=== PATIENT | female | born 1980 | race Caucasian/White ===

== ENCOUNTER 2019-12-27 04:23 | Inpatient (IN) | payer BC ==
[2019-12-27] MEDS ORDERED: Sodium Chloride 0.9% 10 ML Syringe FLUSH PRN (05:05)
[2019-12-27] MEDS ORDERED: Butorphanol 1 MG/ML SDV IVPUSH PRN (05:05)
[2019-12-27] MEDS ORDERED: Tranexamic Acid 1,000 MG in Sodium Chloride 0.9% 100 ML IV PRN (05:05)
[2019-12-27] MEDS ORDERED: Sodium Chloride 0.9% 2.5 ML Syringe FLUSH PRN (05:05)
[2019-12-27] MEDS ORDERED: Sodium Chloride 0.9% 10 ML SDV IV PRN (05:05)
[2019-12-27] MEDS ORDERED: Misoprostol 200 MCG Tab PO PRN (05:05)
[2019-12-27] MEDS ORDERED: Methylergonovine 0.2 MG/1 ML Amp IM PRN (05:05)
[2019-12-27] MEDS ORDERED: Nalbuphine 10 MG/1 ML Vial IVPUSH PRN (05:05)
[2019-12-27] MEDS ORDERED: Carboprost Tromethamine 250 MCG/1 ML Amp IM PRN (05:05)
[2019-12-27] MEDS ORDERED: Water For Irrigation,Sterile 1,000 ML Container IRR PRN (05:05)
[2019-12-27] MEDS ORDERED: Lidocaine 1% 50 ML MDV INJECT PRN (05:05)
[2019-12-27] MEDS ORDERED: Lactated Ringers 1,000 ML IV SCH (05:15)
[2019-12-27] MEDS ORDERED: Oxytocin/0.9 % Sodium Chloride 30 UNIT/500 ML BAG IV SCH (05:15)
[2019-12-27] MEDS ORDERED: Ampicillin 2 GM in Sodium Chloride 0.9% 100 ML IV ONE (05:30)
[2019-12-27] MEDS ORDERED: Witch Hazel Medicated Pads 40/Jar TOP PRN (09:19)
[2019-12-27] MEDS ORDERED: Lanolin 100% Cream 7 GM Tube TOP PRN (09:19)
[2019-12-27] MEDS ORDERED: Docusate Sodium 100 MG Cap PO PRN (09:19)
[2019-12-27] MEDS ORDERED: oxyCODONE 5 MG Tab PO PRN (09:19)
[2019-12-27] MEDS ORDERED: Benzocaine/Menthol 20%-0.5% Spray 78 GM Cannister TOP PRN (09:19)
[2019-12-27] MEDS ORDERED: Acetaminophen 500 MG Tab PO PRN (09:19)
[2019-12-27] MEDS ORDERED: Bisacodyl 10 MG Supp RECTAL PRN (09:19)
--- NOTE | 2019-12-27 09:26 | PCM.DEL ---
L & D Note - General Info Date of Service: 12/27/19 Mother's Due Date: 01/17/20 - Delivery Note Labor: Spontaneous Delivery Outcome: Livebirth Infant Delivery Method: Spontaneous Vaginal Delivery-Single Presentation: Right Occiput Anterior (IFTIKHAR) Nuchal Cord: None Anesthesia Type: None Amniotic Fluid Description: Clear Episiotomy Type: None Laceration: None Placenta: Intact, Spontaneous Cord: 3 Vessels Resuscitation Needed: No : Bulb Syringe, Stimulated, Warmed, [place] Used Score 1 min: 8 Score 5 min: 9 - General Info Date of Service: 12/27/19 - Patient Data Weight - Most Recent: 74.843 kg I&O - Last 24 Hours: Intake & Output 12/26/19 12/27/19 12/27/19 22:59 06:59 14:59 Intake Total 100 Balance 100 Lab Results Last 24 Hours: Laboratory Results - last 24 hr 12/27/19 12/27/19 12/27/19 Range/Units 04:33 04:40 05:21 WBC 11.23 H (4.0-11.0) K/uL RBC 3.67 L (4.30-5.90) M/uL Hgb 11.6 L (12.0-16.0) g/dL Hct 34.5 L (36.0-46.0) % MCV 94.0 (80.0-98.0) fL MCH 31.6 (27.0-32.0) pg MCHC 33.6 (31.0-37.0) g/dL RDW Std Deviation 46.5 (28.0-62.0) fl RDW Coeff of Callum 13 (11.0-15.0) % Plt Count 141 L (150-400) K/uL MPV 11.30 (7.40-12.00) fL Nucleated RBC % 0.0 /100WBC Nucleated RBCs # 0 K/uL Membrane Rupture POSITIVE COVID-19 (JANEEN) NEGATIVE (NEGATIVE) Blood Type Antibody Screen 12/27/19 Range/Units 05:21 WBC (4.0-11.0) K/uL RBC (4.30-5.90) M/uL Hgb (12.0-16.0) g/dL Hct (36.0-46.0) % MCV (80.0-98.0) fL MCH (27.0-32.0) pg MCHC (31.0-37.0) g/dL RDW Std Deviation (28.0-62.0) fl RDW Coeff of Callum (11.0-15.0) % Plt Count (150-400) K/uL MPV (7.40-12.00) fL Nucleated RBC % /100WBC Nucleated RBCs # K/uL Membrane Rupture COVID-19 (JANEEN) (NEGATIVE) Blood Type A POSITIVE Antibody Screen NEGATIVE Med Orders - Current: Current Medications Acetaminophen (Tylenol Extra Strength) 1,000 mg PO Q6H PRN PRN Reason: Pain Benzocaine/Menthol (Dermoplast Pain Relief 20%-0.5% [place]) 78 gm TOP ASDIRECTED PRN PRN Reason: Perineal Comfort Measure Bisacodyl (Dulcolax) 10 mg RECTAL ONETIME PRN PRN Reason: Constipation Butorphanol Tartrate (Stadol) 1 mg IVPUSH Q1H PRN PRN Reason: Pain Carboprost Tromethamine (Hemabate Ds) 250 mcg IM ASDIRECTED PRN PRN Reason: Post Hemorrhage Docusate Sodium (Colace) 100 mg PO BID PRN PRN Reason: Constipation Emollient Ointment (Lansinoh Hpa) 0 gm TOP ASDIRECTED PRN PRN Reason: Sore Nipples Lactated Ringer's (Ringers, Lactated) 1,000 mls @ 150 mls/hr IV ASDIRECTED [facility] Last Admin: 12/27/19 05:26 Dose: 999 mls/hr Documented by: Oxytocin/Sodium Chloride (Oxytocin 30 Unit/500 Ml-Ns) 30 unit in 500 mls @ 500 mls/hr IV TITRATE [facility] Last Infusion: 12/27/19 09:12 Dose: 500 mls/hr Documented by: Tranexamic Acid 1,000 mg/ (Sodium Chloride) 110 mls @ 660 mls/hr IV ONETIME PRN PRN Reason: Bleeding Ampicillin Sodium 1 gm/ Sodium (Chloride) 50 mls @ 100 mls/hr IV Q4H [facility] Ibuprofen (Motrin) 800 mg PO Q8H PRN PRN Reason: Pain Levothyroxine Sodium (Synthroid) 50 mcg PO DAILY [facility] Lidocaine HCl (Xylocaine 1%) 50 ml INJECT ONETIME PRN PRN Reason: Laceration repair Methylergonovine Maleate (Methergine) 0.2 mg IM ASDIRECTED PRN PRN Reason: Post Hemorrhage Misoprostol (Cytotec) 200 mcg PO ONETIME PRN PRN Reason: Post Hemorrhage Nalbuphine HCl (Nubain) 10 mg IVPUSH Q1H PRN PRN Reason: Pain (severe 7-10) Oxycodone HCl (Oxycodone) 5 mg PO Q2H PRN PRN Reason: Pain Sodium Chloride (Saline Flush) 10 ml FLUSH ASDIRECTED PRN PRN Reason: Keep Vein Open Sodium Chloride (Saline Flush) 2.5 ml FLUSH ASDIRECTED PRN PRN Reason: Keep Vein Open Sodium Chloride (Normal Saline) 10 ml IV ASDIRECTED PRN PRN Reason: IV Use Sterile Water (Sterile Water For Irrigation) 1,000 ml IRR ASDIRECTED PRN PRN Reason: delivery Witch Kathe (Tucks) 1 pad TOP ASDIRECTED PRN PRN Reason: comfort care Discontinued Medications Ampicillin Sodium 2 gm/ Sodium (Chloride) 100 mls @ 200 mls/hr IV ONETIME ONE Stop: 12/27/19 05:59 Last Admin: 12/27/19 05:45 Dose: 200 mls/hr Documented by: - Problem List & Annotations (1) Vaginal delivery SNOMED Code(s): 961927576 Code(s): O80 - ENCOUNTER FOR FULL-TERM UNCOMPLICATED DELIVERY Status: Acute Current Visit: Yes - Problem List Review Problem List Initiated/Reviewed/Updated: Yes - My Orders Last 24 Hours: My Active Orders 12/27/19 09:19 Patient Status [ADT] Routine May Shower [RC] ASDIRECTED Notify Provider Vital Signs [RC] ASDIRECTED Up ad Ginger [RC] ASDIRECTED Vital Signs [RC] PER UNIT ROUTINE Acetaminophen [Tylenol Extra Strength] 1,000 mg PO Q6H PRN Benzocaine/Menthol [Dermoplast Pain Relief 20%-0.5% [place]] 78 gm TOP ASDIRECTED PRN Docusate Sodium [Colace] 100 mg PO BID PRN Ibuprofen [Motrin] 800 mg PO Q8H PRN Lanolin [Lansinoh HPA] See Dose Instructions TOP ASDIRECTED PRN bisacodyL [Dulcolax] 10 mg RECTAL ONETIME PRN oxyCODONE 5 mg PO Q2H PRN witch Kathe [Tucks] 1 pad TOP ASDIRECTED PRN Assess Lochia [WOMSER] Per Unit Routine Assess Uterine Involution [WOMSER] Per Unit Routine Breast Pump [WOMSER] Per Unit Routine Peripheral IV Discontinue [OM.PC] Routine 12/27/19 09:20 Cooling Warming Measures [RC] ASDIRECTED Ice Therapy [OM.PC] Per Unit Routine Perineal Care [OM.PC] Per Unit Routine Sitz Bath [OM.PC] Per Unit Routine 12/27/19 Lunch Regular Diet [DIET] 12/28/19 05:11 HEMOGLOBIN/HEMATOCRIT,HH [HEME] Timed 12/28/19 09:00 Levothyroxine [Synthroid] 50 mcg PO DAILY - Assessment Assessment:: 39yo s/p at 37w0d - Plan Plan:: 1. GBS positive- received inadequate Ampicillin prophylaxis 2. AMA 3. Hypothyroidism- continue Levothyroxine 4. Routine care
[2019-12-27] MEDS: Ibuprofen 800 MG Tab PO PRN ×2 (11:05→21:09)
--- NOTE | 2019-12-27 12:58 | OR ---
SURGEON: Mirna Carlson MD DATE OF PROCEDURE: 12/27/2019 PREOPERATIVE DIAGNOSES: 1. A 39-year-old, G4, P 3-0-0-3, at 37 weeks and 0 days' gestation. 2. Spontaneous rupture of membranes. 3. Advanced maternal age. 4. Hypothyroidism, on levothyroxine. 5. Group B Streptococcus positive. POSTOPERATIVE DIAGNOSES: 1. A 39-year-old, G4, P 3-0-0-3, at 37 weeks and 0 days' gestation. 2. Spontaneous rupture of membranes. 3. Advanced maternal age. 4. Hypothyroidism, on levothyroxine. 5. Group B Streptococcus positive. PROCEDURE: Spontaneous vaginal delivery. PRIMARY SURGEON: Mirna Carlson MD FLOOR HAND: Mary Pike, medical student. ANESTHESIA: None. ESTIMATED BLOOD LOSS: 300 mL. FINDINGS: Live male in right occiput anterior position. score of 8 and 9 at one and five minutes respectively. Weight 3020 g. Placenta intact and with 3- vessel cord. No perineal lacerations. INDICATIONS: This is a 39-year-old, G4, P 3-0-0-3, who presented at 37 weeks and 0 days' gestation complaining of rupture of membranes. Upon presentation, rupture of membranes was confirmed. She was found to be mary jo spontaneously with cervical change. She was admitted to Labor and Delivery. Ampicillin was started for GBS prophylaxis. She progressed to complete cervical dilation, only receiving one dose of antibiotics. I was called to the room. DESCRIPTION OF PROCEDURE: The patient pushed over the next three contractions and delivered a live male infant. The head was delivered followed by the shoulders and remainder of the body. Infant was placed on the maternal abdomen. After approximately 60 seconds, cord was clamped and cut. Cord blood was obtained. The perineum was inspected, no lacerations were noted. The placenta then delivered via the Jordan-Conn maneuver, intact and with 3-vessel cord. The fundus was firm below the umbilicus with minimal bleeding. The patient and tolerated the delivery well. [id number] / MODL /[id number] MTDD
[2019-12-27] MEDS: Ampicillin 1 GM in Sodium Chloride 0.9% 50 ML IV SCH (19:15)
[2019-12-28] MEDS: Ibuprofen 800 MG Tab PO PRN (07:20)
--- NOTE | 2019-12-28 07:25 | PCM.PNPP ---
<Mary Pike - Last Filed: 12/28/19 07:20> - General Info Date of Service: 12/28/19 Admission Dx/Problem (Free Text): of male at 37w0d Functional Status: Reports: Pain Controlled, Tolerating Diet, Ambulating, Urinating - Review of Systems General: Reports: No Symptoms HEENT: Reports: No Symptoms Pulmonary: Reports: No Symptoms Cardiovascular: Reports: No Symptoms Gastrointestinal: Reports: No Symptoms Genitourinary: Reports: No Symptoms Musculoskeletal: Reports: No Symptoms Skin: Reports: No Symptoms Neurological: Reports: No Symptoms Psychiatric: Reports: No Symptoms - General Info Date of Service: 12/28/19 - Patient Data Vital Signs - Most Recent: Last Vital Signs Temp 98.5 F 12/28/19 06:30 Pulse 77 12/28/19 06:30 Resp 15 12/28/19 06:30 BP 103/62 12/28/19 06:30 Pulse Ox 97 12/28/19 06:30 Weight - Most Recent: 74.843 kg Lab Results - Last 24 Hours: Laboratory Results - last 24 hr 12/28/19 Range/Units 05:45 Hgb 10.4 L (12.0-16.0) g/dL Hct 30.6 L (36.0-46.0) % Med Orders - Current: Current Medications Acetaminophen (Tylenol Extra Strength) 1,000 mg PO Q6H PRN PRN Reason: Pain Benzocaine/Menthol (Dermoplast Pain Relief 20%-0.5% [place]) 78 gm TOP ASDIRECTED PRN PRN Reason: Perineal Comfort Measure Bisacodyl (Dulcolax) 10 mg RECTAL ONETIME PRN PRN Reason: Constipation Docusate Sodium (Colace) 100 mg PO BID PRN PRN Reason: Constipation Emollient Ointment (Lansinoh Hpa) 0 gm TOP ASDIRECTED PRN PRN Reason: Sore Nipples Ibuprofen (Motrin) 800 mg PO Q8H PRN PRN Reason: Pain Last Admin: 12/27/19 21:09 Dose: 800 mg Documented by: Levothyroxine Sodium (Synthroid) 50 mcg PO DAILY [facility] Oxycodone HCl (Oxycodone) 5 mg PO Q2H PRN PRN Reason: Pain Sodium Chloride (Saline Flush) 10 ml FLUSH ASDIRECTED PRN PRN Reason: Keep Vein Open Sodium Chloride (Saline Flush) 2.5 ml FLUSH ASDIRECTED PRN PRN Reason: Keep Vein Open Sodium Chloride (Normal Saline) 10 ml IV ASDIRECTED PRN PRN Reason: IV Use Witch Kathe (Tucks) 1 pad TOP ASDIRECTED PRN PRN Reason: comfort care Last Admin: 12/27/19 11:17 Dose: 1 tub Documented by: Discontinued Medications Butorphanol Tartrate (Stadol) 1 mg IVPUSH Q1H PRN PRN Reason: Pain Carboprost Tromethamine (Hemabate Ds) 250 mcg IM ASDIRECTED PRN PRN Reason: Post Hemorrhage Lactated Ringer's (Ringers, Lactated) 1,000 mls @ 150 mls/hr IV ASDIRECTED [facility] Last Admin: 12/27/19 05:26 Dose: 999 mls/hr Documented by: Oxytocin/Sodium Chloride (Oxytocin 30 Unit/500 Ml-Ns) 30 unit in 500 mls @ 500 mls/hr IV TITRATE [facility] Last Infusion: 12/27/19 09:12 Dose: 500 mls/hr Documented by: Tranexamic Acid 1,000 mg/ (Sodium Chloride) 110 mls @ 660 mls/hr IV ONETIME PRN PRN Reason: Bleeding Ampicillin Sodium 2 gm/ Sodium (Chloride) 100 mls @ 200 mls/hr IV ONETIME ONE Stop: 12/27/19 05:59 Last Admin: 12/27/19 05:45 Dose: 200 mls/hr Documented by: Ampicillin Sodium 1 gm/ Sodium (Chloride) 50 mls @ 100 mls/hr IV Q4H [facility] Last Admin: 12/27/19 19:15 Dose: Not Given Documented by: Lidocaine HCl (Xylocaine 1%) 50 ml INJECT ONETIME PRN PRN Reason: Laceration repair Methylergonovine Maleate (Methergine) 0.2 mg IM ASDIRECTED PRN PRN Reason: Post Hemorrhage Misoprostol (Cytotec) 200 mcg PO ONETIME PRN PRN Reason: Post Hemorrhage Nalbuphine HCl (Nubain) 10 mg IVPUSH Q1H PRN PRN Reason: Pain (severe 7-10) Sterile Water (Sterile Water For Irrigation) 1,000 ml IRR ASDIRECTED PRN PRN Reason: delivery Last Admin: 12/27/19 08:59 Dose: 1,000 ml Documented by: - Interaction Disposition, : [place] at Bedside Interaction: Holding Feeding: Bottle Fed Support Person: Significant Other - Recovery Exam Fundal Tone: Firm Fundal Level: 1 Fingerbreadths Below Umbilicus Fundal Placement: Midline Lochia Amount: Scant Lochia Color: Rubra/Red Perineum Description: Intact, Minimal Bruising/Swelling Episiotomy/Laceration: None Bladder Status: Voiding Urinary Elimination: Voided - Exam General: Alert, Oriented HEENT: Pupils Equal, Pupils Reactive, EOMI Lungs: Clear to Auscultation, Normal Respiratory Effort Cardiovascular: Regular Rate, Regular Rhythm GI/Abdominal Exam: Normal Bowel Sounds, Soft, Non-Tender, No Organomegaly, No Distention, No Mass Extremities: Normal Inspection, Non-Tender, No Pedal Edema, Normal Capillary Refill Skin: Warm, Dry, Intact Neurological: No New Focal Deficit Psy/Mental Status: Alert, Normal Affect, Normal Mood - Problem List Review Problem List Initiated/Reviewed/Updated: Yes - Assessment Assessment:: 39yo s/p at 37w0d - Plan Plan:: 1. GBS positive- received inadequate Ampicillin prophylaxis 2. AMA 3. Hypothyroidism- continue Levothyroxine 4. Routine care 5. Plan to discharge home tomorrow <Mirna Carlson - Last Filed: 12/28/19 08:02> - Patient Data Vital Signs - Most Recent: Last Vital Signs Temp 36.9 C 12/28/19 06:30 Pulse 77 12/28/19 06:30 Resp 15 12/28/19 06:30 BP 103/62 12/28/19 06:30 Pulse Ox 97 12/28/19 06:30 Lab Results - Last 24 Hours: Laboratory Results - last 24 hr 12/28/19 Range/Units 05:45 Hgb 10.4 L (12.0-16.0) g/dL Hct 30.6 L (36.0-46.0) % Med Orders - Current: Current Medications Acetaminophen (Tylenol Extra Strength) 1,000 mg PO Q6H PRN PRN Reason: Pain Benzocaine/Menthol (Dermoplast Pain Relief 20%-0.5% [place]) 78 gm TOP ASDIRECTED PRN PRN Reason: Perineal Comfort Measure Bisacodyl (Dulcolax) 10 mg RECTAL ONETIME PRN PRN Reason: Constipation Docusate Sodium (Colace) 100 mg PO BID PRN PRN Reason: Constipation Emollient Ointment (Lansinoh Hpa) 0 gm TOP ASDIRECTED PRN PRN Reason: Sore Nipples Ibuprofen (Motrin) 800 mg PO Q8H PRN PRN Reason: Pain Last Admin: 12/28/19 07:20 Dose: 800 mg Documented by: Levothyroxine Sodium (Synthroid) 50 mcg PO DAILY [facility] Oxycodone HCl (Oxycodone) 5 mg PO Q2H PRN PRN Reason: Pain Sodium Chloride (Saline Flush) 10 ml FLUSH ASDIRECTED PRN PRN Reason: Keep Vein Open Sodium Chloride (Saline Flush) 2.5 ml FLUSH ASDIRECTED PRN PRN Reason: Keep Vein Open Sodium Chloride (Normal Saline) 10 ml IV ASDIRECTED PRN PRN Reason: IV Use Witch Kathe (Tucks) 1 pad TOP ASDIRECTED PRN PRN Reason: comfort care Last Admin: 12/27/19 11:17 Dose: 1 tub Documented by: Discontinued Medications Butorphanol Tartrate (Stadol) 1 mg IVPUSH Q1H PRN PRN Reason: Pain Carboprost Tromethamine (Hemabate Ds) 250 mcg IM ASDIRECTED PRN PRN Reason: Post Hemorrhage Lactated Ringer's (Ringers, Lactated) 1,000 mls @ 150 mls/hr IV ASDIRECTED [facility] Last Admin: 12/27/19 05:26 Dose: 999 mls/hr Documented by: Oxytocin/Sodium Chloride (Oxytocin 30 Unit/500 Ml-Ns) 30 unit in 500 mls @ 500 mls/hr IV TITRATE [facility] Last Infusion: 12/27/19 09:12 Dose: 500 mls/hr Documented by: Tranexamic Acid 1,000 mg/ (Sodium Chloride) 110 mls @ 660 mls/hr IV ONETIME PRN PRN Reason: Bleeding Ampicillin Sodium 2 gm/ Sodium (Chloride) 100 mls @ 200 mls/hr IV ONETIME ONE Stop: 12/27/19 05:59 Last Admin: 12/27/19 05:45 Dose: 200 mls/hr Documented by: Ampicillin Sodium 1 gm/ Sodium (Chloride) 50 mls @ 100 mls/hr IV Q4H [facility] Last Admin: 12/27/19 19:15 Dose: Not Given Documented by: Lidocaine HCl (Xylocaine 1%) 50 ml INJECT ONETIME PRN PRN Reason: Laceration repair Methylergonovine Maleate (Methergine) 0.2 mg IM ASDIRECTED PRN PRN Reason: Post Hemorrhage Misoprostol (Cytotec) 200 mcg PO ONETIME PRN PRN Reason: Post Hemorrhage Nalbuphine HCl (Nubain) 10 mg IVPUSH Q1H PRN PRN Reason: Pain (severe 7-10) Sterile Water (Sterile Water For Irrigation) 1,000 ml IRR ASDIRECTED PRN PRN Reason: delivery Last Admin: 12/27/19 08:59 Dose: 1,000 ml Documented by: - Problem List & Annotations (1) Vaginal delivery SNOMED Code(s): 032507275 Code(s): O80 - ENCOUNTER FOR FULL-TERM UNCOMPLICATED DELIVERY Status: Acute Current Visit: Yes - My Orders Last 24 Hours: My Active Orders 12/27/19 09:19 Patient Status [ADT] Routine May Shower [RC] ASDIRECTED Notify Provider Vital Signs [RC] ASDIRECTED Up ad Ginger [RC] ASDIRECTED Vital Signs [RC] PER UNIT ROUTINE Acetaminophen [Tylenol Extra Strength] 1,000 mg PO Q6H PRN Benzocaine/Menthol [Dermoplast Pain Relief 20%-0.5% [place]] 78 gm TOP ASDIRECTED PRN Docusate Sodium [Colace] 100 mg PO BID PRN Ibuprofen [Motrin] 800 mg PO Q8H PRN Lanolin [Lansinoh HPA] See Dose Instructions TOP ASDIRECTED PRN bisacodyL [Dulcolax] 10 mg RECTAL ONETIME PRN oxyCODONE 5 mg PO Q2H PRN witch Kathe [Tucks] 1 pad TOP ASDIRECTED PRN Assess Lochia [WOMSER] Per Unit Routine Assess Uterine Involution [WOMSER] Per Unit Routine Breast Pump [WOMSER] Per Unit Routine Peripheral IV Discontinue [OM.PC] Routine 12/27/19 09:20 Cooling Warming Measures [RC] ASDIRECTED Ice Therapy [OM.PC] Per Unit Routine Perineal Care [OM.PC] Per Unit Routine Sitz Bath [OM.PC] Per Unit Routine 12/27/19 Lunch Regular Diet [DIET] 12/28/19 09:00 Levothyroxine [Synthroid] 50 mcg PO DAILY - Plan Plan:: May discharge home today if cleared by flosser, reviewed discharge instructions.
[2019-12-28] MEDS ORDERED: Levothyroxine 25 MCG Tab PO SCH ×2 (09:00)
[2019-12-28] MEDS ORDERED: Levothyroxine 50 MCG Tab PO SCH (09:00)
--- NOTE | 2019-12-29 05:30 | PCM.PNPP ---
- General Info Date of Service: 12/29/19 Admission Dx/Problem (Free Text): Resting comfortably in bed. Pain well controlled. Lochia decreasing. Ambulating and voiding without difficulty. Bottlefeeding. - General Info Date of Service: 12/29/19 - Patient Data Vital Signs - Most Recent: Last Vital Signs Temp 98.4 F 12/28/19 20:00 Pulse 76 12/28/19 20:00 Resp 17 12/28/19 20:00 BP 114/75 12/28/19 20:00 Pulse Ox 98 12/28/19 20:00 Weight - Most Recent: 165 lb Lab Results - Last 24 Hours: Laboratory Results - last 24 hr 12/27/19 12/28/19 Range/Units 05:21 05:45 Hgb 10.4 L (12.0-16.0) g/dL Hct 30.6 L (36.0-46.0) % RPR Non-Reac (Non-Reac) Med Orders - Current: Current Medications Acetaminophen (Tylenol Extra Strength) 1,000 mg PO Q6H PRN PRN Reason: Pain Benzocaine/Menthol (Dermoplast Pain Relief 20%-0.5% [place]) 78 gm TOP ASDIRECTED PRN PRN Reason: Perineal Comfort Measure Bisacodyl (Dulcolax) 10 mg RECTAL ONETIME PRN PRN Reason: Constipation Docusate Sodium (Colace) 100 mg PO BID PRN PRN Reason: Constipation Emollient Ointment (Lansinoh Hpa) 0 gm TOP ASDIRECTED PRN PRN Reason: Sore Nipples Ibuprofen (Motrin) 800 mg PO Q8H PRN PRN Reason: Pain Last Admin: 12/28/19 07:20 Dose: 800 mg Documented by: Levothyroxine Sodium (Levothyroxine) 50 mcg PO ACBREAKFAST [facility] Last Admin: 12/28/19 08:43 Dose: 50 mcg Documented by: Oxycodone HCl (Oxycodone) 5 mg PO Q2H PRN PRN Reason: Pain Sodium Chloride (Saline Flush) 10 ml FLUSH ASDIRECTED PRN PRN Reason: Keep Vein Open Sodium Chloride (Saline Flush) 2.5 ml FLUSH ASDIRECTED PRN PRN Reason: Keep Vein Open Sodium Chloride (Normal Saline) 10 ml IV ASDIRECTED PRN PRN Reason: IV Use Witch Kathe (Tucks) 1 pad TOP ASDIRECTED PRN PRN Reason: comfort care Last Admin: 12/27/19 11:17 Dose: 1 tub Documented by: Discontinued Medications Butorphanol Tartrate (Stadol) 1 mg IVPUSH Q1H PRN PRN Reason: Pain Carboprost Tromethamine (Hemabate Ds) 250 mcg IM ASDIRECTED PRN PRN Reason: Post Hemorrhage Lactated Ringer's (Ringers, Lactated) 1,000 mls @ 150 mls/hr IV ASDIRECTED [facility] Last Admin: 12/27/19 05:26 Dose: 999 mls/hr Documented by: Oxytocin/Sodium Chloride (Oxytocin 30 Unit/500 Ml-Ns) 30 unit in 500 mls @ 500 mls/hr IV TITRATE [facility] Last Infusion: 12/27/19 09:12 Dose: 500 mls/hr Documented by: Tranexamic Acid 1,000 mg/ (Sodium Chloride) 110 mls @ 660 mls/hr IV ONETIME PRN PRN Reason: Bleeding Ampicillin Sodium 2 gm/ Sodium (Chloride) 100 mls @ 200 mls/hr IV ONETIME ONE Stop: 12/27/19 05:59 Last Admin: 12/27/19 05:45 Dose: 200 mls/hr Documented by: Ampicillin Sodium 1 gm/ Sodium (Chloride) 50 mls @ 100 mls/hr IV Q4H [facility] Last Admin: 12/27/19 19:15 Dose: Not Given Documented by: Levothyroxine Sodium (Synthroid) 50 mcg PO DAILY [facility] Levothyroxine Sodium (Levothyroxine) 50 mcg PO DAILY [facility] Lidocaine HCl (Xylocaine 1%) 50 ml INJECT ONETIME PRN PRN Reason: Laceration repair Methylergonovine Maleate (Methergine) 0.2 mg IM ASDIRECTED PRN PRN Reason: Post Hemorrhage Misoprostol (Cytotec) 200 mcg PO ONETIME PRN PRN Reason: Post Hemorrhage Nalbuphine HCl (Nubain) 10 mg IVPUSH Q1H PRN PRN Reason: Pain (severe 7-10) Sterile Water (Sterile Water For Irrigation) 1,000 ml IRR ASDIRECTED PRN PRN Reason: delivery Last Admin: 12/27/19 08:59 Dose: 1,000 ml Documented by: - Interaction Disposition, : at Bedside Feeding: Bottle Fed - Recovery Exam Fundal Tone: Firm Fundal Level: 1 Fingerbreadths Below Umbilicus Fundal Placement: Midline Lochia Amount: Scant Bladder Status: Voiding Urinary Elimination: Voided - Exam General: Alert, Oriented Lungs: Clear to Auscultation, Normal Respiratory Effort Cardiovascular: Regular Rate, Regular Rhythm GI/Abdominal Exam: Normal Bowel Sounds Extremities: Normal Inspection, No Pedal Edema Skin: Dry, Intact Psy/Mental Status: Normal Affect - Problem List & Annotations (1) Vaginal delivery SNOMED Code(s): 890665386 Code(s): O80 - ENCOUNTER FOR FULL-TERM UNCOMPLICATED DELIVERY Status: Acute - Problem List Review Problem List Initiated/Reviewed/Updated: Yes - Assessment Assessment:: 39yo s/p at 37w0d - Plan Plan:: Meeting milestone. Anticipate discharge home today. Precautions reviewed including fever/chills, intractable nausea/vomiting, severe pain not controlled by PO medications or heavy vaginal bleeding. Questions elicited and answered. Follow-up in 4-6 weeks for visit.
== END 2019-12-29 09:14 | disposition home or self-care (01) | DRG 560 ==
LOC: MW.OBCHECK 04:23 → MW.OB 04:23 → MW.OBCHECK 04:41 → OBSVTOIN 09:02 → MW.OB 11:30
PROVIDERS: ADMIT Obstetrics & Gynecology; ATTEND Obstetrics & Gynecology
PROC: 10E0XZZ Delivery of Products of Conception, External Approach (ICD-10-PCS; principal; 2019-12-27)
DX: O99.824 Streptococcus B carrier state complicating childbirth (principal); Z3A.37 37 weeks gestation of pregnancy; Z37.0 Single live birth; O99.284 Endocrine, nutritional and metabolic diseases complicating childbirth; E03.9 Hypothyroidism, unspecified; Z11.59 Encounter for screening for other viral diseases
CPT/HCPCS: 36415; 59025; 59409; 84112; 85014; 85018; 85027; 86592; 86850; 86900; 86901; A9270-GY; J0290; J2590; J7050; J7120; U0002